=== PATIENT | female | born 1975 | race Caucasian/White ===

== ENCOUNTER 2019-07-29 16:28 | Emergency (ER) | payer BC, OTHER ==
--- OUTSIDE RECORDS SUMMARY | 2019-07-29 17:12 | XMS REPORT | Continuity of Care Document ---
:1975 External Reference #:[id number] Author Name Shala Sutton MD Address [address] [place] [address] Care Team Providers Name Role Phone Dena Robins PA - Medical Care Team Information Mail Processing Clerk [phone] Problems Active Problems Provider Date Paroxysmal supraventricular tachycardia Gloria Canela ANP Onset: 2015 Dyspnea Gloria Canela ANP Onset: 04/27/2016 Obesity Gloria Canela ANP Onset: 04/27/2016 Low blood pressure Gloria Canela ANP Onset: 04/27/2016 Palpitations Shala Sutton MD Onset: 04/27/2016 Abnormal cervical Papanicolaou smear Osiirs Mccloud RPAC Onset: 2016 Note: remote Liver function tests abnormal Osiris Mccloud RPAC Onset: 04/09/2017 Note: recurring Epigastric pain Osiris Mccloud RPAC Onset: 02/24/2018 Screening mammography Osiris Mccloud RPAC Onset: 02/24/2018 Social History Type Date Description Comments Sex Unknown Tobacco Use Start: Unknown Never Smoked Cigarettes ETOH Use Rarely consumes alcohol Tobacco Use Start: Unknown Patient has never smoked Smoking Status Reviewed: 06/07/19 Patient has never smoked Allergies, Adverse Reactions, Alerts Active Allergies Reaction Severity Comments Date NKDA 04/13/2016 Gluten 08/09/2017 Medications Active Medications SIG Qnty Indications Ordering Date Provider Zantac 150 Maximum take 1 tablet by mouth 60tabs K21.9 Melisa Collier, 09/2018 Strength 2 times per day for 150mg gastroesophageal reflux Tablets disease Bystolic 1 by mouth every day at 90tabs Shala Sutton MD 07/29/2018 5mg bedtime Tablets Probiotic (OTC) 1 capsule daily. Unknown 250mg Capsules Zyrtec Allergy 1 tab by mouth every Unknown night 10mg Tablets Immunizations CPT Code Status Date Vaccine Lot # [id number] Given 04/09/2017 Influenza Virus Vaccine, Quadrivalent, Slit Virus, Im Use Vital Signs Date Vital Result Comment 06/07/2019 3:42pm BP Systolic Sitting Left Arm 128 mmHg BP Diastolic Sitting Left Arm 88 mmHg Heart Rate 62 /min Respiratory Rate 16 /min Height 61.25 inches 5'1.25" Weight 227.00 lb BMI (Body Mass Index) 42.5 kg/m2 BSA (Body Surface Area) 2.00 m2 [place]ett body weight in kilograms 48 kg O2 % BldC Oximetry 97 % 11/01/2018 2:04pm BP Systolic Sitting Right Arm 114 mmHg BP Diastolic Sitting Right Arm 78 mmHg Body Temperature 98.4 F Heart Rate 73 /min Height 61.25 inches 5'1.25" Weight 228.00 lb BMI (Body Mass Index) 42.7 kg/m2 BSA (Body Surface Area) 2.00 m2 Jewett body weight in kilograms 48 kg O2 % BldC Oximetry 98 % Results Test Acquired Date Facility Test Result H/L Range Note LDL Cholesterol 01/05/[address] [facility] [address] Cholesterol 170 mg/dL <200 1, 2 [address] [place] [address] [phone] Triglycerides 72 mg/dL <150 3 HDL Cholesterol 36 mg/dL Low >40 4 LDL-Cholesterol 120 mg/dL < 100 5 1 Z13.220 2 Reference Guidelines*: Desirable: ........... < 200 mg/dL Borderline High: ..... 200-239 mg/dL High: ................ >= 240 mg/dL * The National Cholesterol Education Program (NCEP) 3 Reference Guidelines*: Normal: ............. < 150 mg/dL Borderline High: .... 150-199 mg/dL High: ............... 200-499 mg/dL Very High: .......... > 500 mg/dL * Source: National Cholesterol Education Program (NCEP) 4 Reference Guidelines*: Low HDL: ..... < 40 mg/dL Normal: ..... 40-60 mg/dL Desirable: ... > 60 mg/dL *The National Cholesterol Education Program(NCEP) 5 Reference Guidelines*: Optimal:........... <100 mg/dL Near Optimal....... 100-129 mg/dL Borderline High.... 130-159 mg/dL High............... 160-189 mg/dL Very High.......... >=190 mg/dL * Source: National Cholesterol Education Program (NCEP) Procedures Date Code Description Status 06/07/2019 76111 EKG-Tracing And Report Completed 03/18/2018 64139670 Mammogram Completed Medical Devices Description No Information Available Encounters Type Date Location Provider Dx Diagnosis Office Visit 06/07/2019 Cardiology Office Shala Sutton MD I47.1 Supraventricular 3:30p tachycardia Assessments Date Code Description Provider 06/07/2019 I47.1 Supraventricular tachycardia Shala Sutton MD Plan of Treatment 06/07/2019 - Shala Sutton MDI47.1 Supraventricular tachycardiaComments:Well controlled with low dose B. No changes needed.Pt will call for refill as needed.AllFollow up:1 year Sooner appt if symptoms arise. Functional Status Functional Condition Comment Date Status Independent with all ADL's Active Mental Status Description No Information Available Referrals Description No Information Available
--- NOTE | 2019-07-29 17:14 | UC ---
Skin Complaint HPI - HPI Summary HPI Summary: 2 wks of neck itcchy red neck rash. she thinks it was her wet hair that caused it. she denies new jewelry, creams, detergent,or meds. nothing makes it better, scratching makes it worse. - History of Current Complaint Chief Complaint: UCSkin Time Seen by Provider: 07/29/19 17:13 Stated Complaint: RASH ON NECK Hx Obtained From: Patient Aggravating Factor(s): Nothing Alleviating Factor(s): Nothing - Allergy/Home Medications Allergies/Adverse Reactions: Allergies Allergy/AdvReac Type Severity Reaction Status Date / Time gluten Allergy Diarrhea Uncoded 07/29/19 17:31 Home Medications: Home Medications Bisoprolol TAB* [Zebeta TAB*] 10 mg PO QPM 07/29/19 [History Confirmed 07/29/19] PMH/Surg Hx/FS Hx/Imm Hx Previously Healthy: Yes Cardiovascular History: Hypertension - Surgical History Surgical History: Unable to Obtain/Confirm - Family History Known Family History: Positive: Non-Contributory Review of Systems All Other Systems Reviewed And Are Negative: Yes Constitutional: Negative: Fever Skin: Positive: Rash Respiratory: Negative: Shortness Of Breath Physical Exam Triage Information Reviewed: Yes Appearance: Well-Appearing Vital Signs Reviewed: Yes Neck: Positive: Supple, Nontender, No Lymphadenopathy Skin: Positive: Rashes - erythematous circumferential pruritic Course/Dx - Course Course Of Treatment: Unclear etiology of a pruritic neck rash in an obese pt. Will tx w/ steroid and antifungal. No resp. involvement. good vitals. - Differential Diagnoses - Skin Complaint Differential Diagnoses: Eczema, Tinea, Other - Diagnoses Provider Diagnosis: Rash Discharge ED - Sign-Out/Discharge Documenting (check all that apply): Patient Departure All imaging exams completed and their final reports reviewed: No Studies - Discharge Plan Condition: Good Disposition: HOME Prescriptions: Clotrimazole 1% TOPICAL (NF) [Lotrimin 1% TOPICAL (NF)] 1 applic TOPICAL BID 5 Days #1 tube Hydrocortisone 1% Oint(NF) [Hydrocortisone 1% Oint (NF)] 1 applic .SEE ORDER BID 5 Days #1 tube Patient Education Materials: Acute Rash (ED) Referrals: Dena Robins PA [Primary Care Provider] - - Billing Disposition and Condition Condition: GOOD Disposition: Home - Attestation Statements Provider Attestation: Per institutional requirements, I have reviewed the chart, however, I was not consulted specifically or made aware of this patient by the midlevel provider. I did not personally evaluate, interact with , or disposition this patient.
[2019-07-29 17:30] VITALS: BP 127/78
== END 2019-07-29 18:02 | disposition home or self-care (01) ==
LOC: UCCORT 16:28
DX: R21 Rash and other nonspecific skin eruption (principal); I10 Essential (primary) hypertension; Z79.899 Other long term (current) drug therapy; Z91.018 Allergy to other foods
CPT/HCPCS: 99212; G0463